=== PATIENT | female | born 1955 | race Caucasian/White ===

== ENCOUNTER 2024-04-24 04:09 | Day surgery (SDC) | payer OTHER, MEDICARE ==
[2024-04-15 18:08] VITALS: BMI 48.8
[2024-04-24] MEDS ORDERED: PROPOFOL 40 ML ONE (09:09)
[2024-04-24] MEDS ORDERED: MIDAZOLAM HCL 2 MG/2 ML SINGLE DOSE VIAL ONE (09:11)
[2024-04-24] MEDS ORDERED: ROCURONIUM BROMIDE 50 MG/5 ML SYRINGE ONE ×2 (09:14→10:50)
[2024-04-24] MEDS ORDERED: SUCCINYLCHOLINE CHLORIDE 200 MG/10 ML SYRINGE ONE ×2 (09:14→11:30)
[2024-04-24] MEDS ORDERED: ONDANSETRON 4 MG/2 ML VIAL IVPUSH PRN (09:28)
[2024-04-24] MEDS ORDERED: LACTATED RINGERS SOLUTION 1,000 ML IV SCH (09:30)
[2024-04-24] MEDS ORDERED: LIDOCAINE 1%/EPI 1:100000 (20 ML MULTI DOSE VIAL) ONE (09:51)
[2024-04-24] MEDS ORDERED: PROPOFOL 20 ML ONE (10:31)
[2024-04-24] MEDS: ceFAZolin SODIUM 1 GM VIAL IVPB ONE (10:45)
[2024-04-24] MEDS: LIDOCAINE 1%/EPI 1:100000 (20 ML MULTI DOSE VIAL) IJ ONE ×2 (10:55)
[2024-04-24] MEDS ORDERED: KETOROLAC TROMETHAMINE 30 MG/1 ML VIAL ONE (11:43)
[2024-04-24] MEDS ORDERED: ONDANSETRON 4 MG/2 ML VIAL ONE ×2 (11:43)
[2024-04-24] MEDS ORDERED: SUGAMMADEX SODIUM 200 MG/2 ML VIAL ONE (11:44)
[2024-04-24] MEDS ORDERED: ACETAMINOPHEN INJECTION 100 ML ONE (11:46)
[2024-04-24] MEDS ORDERED: BACITRACIN ZINC 15 GM TUBE TOPICAL OINTMENT ONE (11:59)
[2024-04-24] MEDS: BACITRACIN ZINC 15 GM TUBE TOPICAL OINTMENT TP ONE (12:00)
[2024-04-24] MEDS: oxyCODONE HCL 5 MG TABLET PO PRN (14:17)
[2024-04-24] MEDS ORDERED: oxyCODONE HCL 5 MG TABLET ONE (14:21)
[2024-04-24 16:42] VITALS: RESP 20; TEMP 97.3
[2024-04-24 16:46] VITALS: BP 135/80; PULSE 70
== END 2024-04-24 15:48 | disposition home or self-care (01) ==
LOC: JASU-SURG 04:09
PROVIDERS: ATTEND Otolaryngology
PROC: 09BU8ZZ Excision of Right Ethmoid Sinus, Via Natural or Artificial Opening Endoscopic (ICD-10-PCS; 2024-04-24)
PROC: 09BV8ZZ Excision of Left Ethmoid Sinus, Via Natural or Artificial Opening Endoscopic (ICD-10-PCS; 2024-04-24)
PROC: 09BQ8ZZ Excision of Right Maxillary Sinus, Via Natural or Artificial Opening Endoscopic (ICD-10-PCS; 2024-04-24)
PROC: 09BR8ZZ Excision of Left Maxillary Sinus, Via Natural or Artificial Opening Endoscopic (ICD-10-PCS; 2024-04-24)
PROC: 09BU8ZZ Excision of Right Ethmoid Sinus, Via Natural or Artificial Opening Endoscopic (ICD-10-PCS; 2024-04-24)
PROC: 09QM8ZZ Repair Nasal Septum, Via Natural or Artificial Opening Endoscopic (ICD-10-PCS; 2024-04-24)
PROC: 09BV8ZZ Excision of Left Ethmoid Sinus, Via Natural or Artificial Opening Endoscopic (ICD-10-PCS; principal; 2024-04-24 09:00)
DX: J33.8 Other polyp of sinus (principal); J34.2 Deviated nasal septum; R09.81 Nasal congestion
CPT/HCPCS: 88304-TC; J0131